=== PATIENT | male | born 1980 | race Caucasian/White ===

== ENCOUNTER → 2017-03-01 | Outpatient (CLI) | payer MEDICAID ==
[~2017-03-01] MED LIST: CYCLOGYL2 M1 OP; DOXYCYCLINE HY100 M3 PO; HCTZ/LISINOPRIL1 TA3 PO; KEFLEX 500MG.500 MG PO; LEVOTHYROXINE0.1 M1 PO; LISINOPRIL 20MG20 MG PO; MUCINEX600 M1 PO; NOMEDS *; PREDNISONE 20MG20 MG PO; RANITIDINE 150150 MG PO; TESSALON PERLE100 MG PO; ZITHROMAX Z-PA250 M1 PO
[2017-03-01 09:51] LABS: HEMOGLOBIN 17.5 g/dL (14.1-18.0); LYMPH # 1.4 K/mm3 (0.7-4.5); LYMPH % 21.4 % (10-50)
[2017-03-01 11:44] LABS: BUN 19 mg/dL (7-18); FREE THYROXIN INDEX 5.5 ug/dl (5.93-13.13); GFR (ESTIMATED) 85 ML/MIN (>60)
== END ==
LOC: LAB 09:22
PROVIDERS: Internal Medicine Adolescent Medicine
DX: E06.3 Autoimmune thyroiditis (principal); R51 Headache

== ENCOUNTER → 2017-03-03 | Outpatient (CLI) | payer MEDICAID ==
--- NOTE | 2017-03-03 15:15 | RADIOLOGY REPORT PS360 ---
US THYROID HISTORY: HYPOTHYROIDISM ORDERING PHYSICIAN: Jessica HUI PATIENT AGE: 36 years COMPARISON: None FINDINGS: Right lobe: Homogeneous echogenicity measuring 3 x 1 x 1.5 cm. No nodules Left lobe: Homogeneous echogenicity measuring 2.3 x 0.8 x 1.4 cm. No nodules Isthmus: Unremarkable IMPRESSION: Unremarkable thyroid ultrasound
== END ==
LOC: RAD 14:00
DX: E03.9 Hypothyroidism, unspecified (principal)

== ENCOUNTER → 2017-03-11 | Outpatient (CLI) | payer MEDICAID ==
--- NOTE | 2017-03-11 09:46 | RADIOLOGY REPORT PS360 ---
EXAM: Barium swallow/esophagram. INDICATION: ORDERING PHYSICIAN: James Larsen MD PATIENT AGE: 36 years COMPARISON: None TECHNIQUE: In the upright position the patient was observed to swallow barium in both the AP and lateral view. The cervical esophagus was examined under fluoroscopy with images obtained. The patient was then placed prone in the right anterior oblique position and was observed to swallow barium with Valsalva technique . FLUOROSCOPY TIME: 58 seconds FINDINGS: There was no evidence of aspiration. There was normal peristalsis. No filling defects or mucosal abnormalities. No masses or strictures. No evidence of hiatal hernia IMPRESSION: Negative barium swallow.
--- NOTE | 2017-03-12 09:05 | RADIOLOGY REPORT PS360 ---
MRI-BRAIN W/O HISTORY: Severe headache with memory loss and aphagia, pharyngeal dysphasia HEADACHE DISORDER, PHARYNGOESOPHAGEAL DYSPHAGIA ORDERING PHYSICIAN: James Larsen MD PATIENT AGE: 36 years COMPARISON: None TECHNIQUE: Standard multiplanar multiecho sequences are performed without contrast. FINDINGS: No midline shift, mass effect, intracranial hemorrhage, hydrocephalus, or acute infarction is evident. The cerebellopontine angles, cerebellum, and brainstem have an unremarkable appearance. There is normal carias-white matter differentiation. No significant white matter abnormalities. The patella angelica, optic chiasm, and corpus callosum are unremarkable. The hippocampal structures are unremarkable and the temporal horns are symmetric. No large aneurysm evident. No mastoid effusion or sinus air-fluid level. IMPRESSION: Negative MRI of the brain without contrast, no acute finding
== END ==
LOC: RAD 07:43
DX: R51 Headache (principal); R13.14 Dysphagia, pharyngoesophageal phase